=== PATIENT | male | born 1955 | race Caucasian/White ===

== ENCOUNTER 2016-08-25 02:13 | Emergency (ER) | payer MEDICARE ==
[2016-08-25 03:25] LABS: SPECIFIC GRAVITY 1.015 (1.001-1.030); URINE BILIRUBIN NEGATIVE (NEGATIVE); URINE BLOOD 1+ (NEGATIVE); URINE GLUCOSE (UA) NEGATIVE (NEGATIVE); URINE LEUKOCYTE ESTERASE NEGATIVE (NEGATIVE); URINE NITRITE NEGATIVE (NEGATIVE); URINE PROTEIN NEGATIVE (NEGATIVE); URINE UROBILINOGEN 1 mg/dL (0-1 mg/dl)
[2016-08-25 03:35] LABS: URINE APPEARANCE CLEAR; URINE COLOR YELLOW
[2016-08-25 03:38] LABS: CALCIUM 9.1 mg/dL (8.6-10.3)
[2016-08-25 03:40] LABS: URINE BACTERIA FEW; URINE EPITHELIAL CELLS 0-2 /hpf; URINE RBC 0-5 /hpf; URINE WBC 0-3 /hpf
== END 2016-08-25 03:56 | disposition home or self-care (01) ==
LOC: ED 02:13
DX: R33.9 Retention of urine, unspecified (principal); N39.0 Urinary tract infection, site not specified